=== PATIENT | female | born 1970 | race Caucasian/White ===

== ENCOUNTER 2018-10-11 09:35 | Inpatient (IN) ==
--- NOTE | 2018-10-11 09:33 | Anesthesia Evaluation PreOp ---
Date of Encounter: 10/11/18 Time of Encounter: 09:29 - Past History Planned Operation: Bronchoscopy, Left Thorocoscopy, Removal Of Mass Cardiac History: Denies any Significant Hx Pulmonary History: Other (Mediastinal Mass) [employer]ITY [employer]ER History: Other (Depression, RLS) Other Medical History: Thyroid (Hypo), Other (Fibromyalgia) Anesthesia History: No Prior Anesthetic Complications, Past Anesthesia (KAYY, Bladder sling) : No (KAYY) Alcohol Use: none Drug use: none Medications and Allergies Lidocaine Patch [Lidoderm 5% patch] 1 each TP DAILY #14 adh..patch 09/10/18 [Rx] Hydrocodone/Acetaminophen [Hydrocodone-Acetamin 7.5-300] 1 each PO Q6H PRN 09/18/18 [History] Levothyroxine Sodium [Synthroid] 200 mcg PO 09/18/18 [History] Ondansetron HCl [Zofran] 4 mg PO Q6H PRN #30 tab 09/18/18 [Rx] Allergy/AdvReac Type Severity Reaction Status Date / Time No Known Allergies Allergy Verified 09/18/18 13:42 - Meds/Allergy Pre-op Review Medications Reviewed: Yes Allergies Reviewed: Yes Beta Blockers on Current Med List: No Anesthesia Results - Labs Laboratory Tests 09/18/18 09/18/18 14:22 14:22 WBC 4.8 Hgb 11.0 L Hct 32.4 L Plt Count 246 Sodium 138 Potassium 4.0 Chloride 101 Carbon Dioxide 26 BUN 14 Creatinine 0.72 - Imaging EKG: report reviewed (SR) Anesthesia Exam O2 Sat Height 1.63 m Weight 99.79 kg O2 Sat by Pulse Oximetry 98 Vital Signs Temp Pulse Resp BP Pulse Ox 98.7 F 76 18 152/92 98 10/11/18 09:59 10/11/18 09:59 10/11/18 09:59 10/11/18 09:59 10/11/18 09:59 NPO (# of Hours): > 8 hrs Pain Scale: 0 Pain Scale Used: Numeric (1 - 10) - HEENT Pupil (Motor): Pupils equal, EOMI Mallampati: I Teeth: Normal Oral Opening: Greater than 3 - COMMUNITY CHEST OFFICER LOC: Oriented COMM[employer]ITY CHEST [employer]ER Motor: Normal RUE, Normal LUE, Normal RLE, Normal LLE, Normal Face [employer]ER Sensory: Normal: RUE, LUE, RLE, LLE, Face - Cardiac Rhythm: Regular Murmur: None JVD: No Carotid Bruit: No - Pulmonary Breath Sounds: bilateral Clear Respiratory Effort: Symmetrical Anesthesia Assess/Plan ASA Score: 3 Level of consciousness: Cooperative Anesthetic Plan: General Autologous Blood: Yes Monitoring Plan: Standard Monitors Recovery Plan: PACU
[2018-10-11] MEDS ORDERED: *HR* FentaNYL (PF) 100 MCG/2 ML VIAL ONE (09:45)
[2018-10-11] MEDS ORDERED: *HR* Midazolam HCl 2 MG/2 ML VIAL ONE (09:45)
[2018-10-11] MEDS ORDERED: *HR* Propofol 200 MG/20 ML VIAL IVP ONE (09:45)
[2018-10-11] MEDS ORDERED: *HR* Succinylcholine 200 MG/10 ML VIAL IVP ONE (09:48)
[2018-10-11] MEDS ORDERED: *HR* Rocuronium Bromide 50 MG/5 ML VIAL ONE ×2 (09:48→11:12)
[2018-10-11] MEDS ORDERED: Lidocaine -MPF 2% 2 ML VIAL ONE (09:48)
[2018-10-11] MEDS ORDERED: Acetaminophen IV 1,000 MG/100 ML INFUS..BTL IVPB ONE (10:01)
[2018-10-11] MEDS ORDERED: CeFAZolin Syr 2,000MG/20 ML 2,000 MG/20 ML SYRINGE IVPB ONE (10:01)
[2018-10-11] MEDS ORDERED: Gabapentin 300 MG CAPSULE PO ONE (10:02)
[2018-10-11] MEDS ORDERED: Ringers Solution, Lactated 1,000 ML IVC SCH (10:15)
--- NOTE | 2018-10-11 10:27 | History & Physical Report ---
Date of Encounter: 10/11/18 Time of Encounter: 10:26 24 Hour HP Update - Instructions Instructions: If the History and Physical is less than 30 days old and was completed prior to A.M. admission and or procedure and has NOT been updated on calendar day of procedure please complete this update prior to performing procedure. - Update Patient reports changes in Medical Condition: No Changes in examination, assessment, or condition: No Changes in Medication: No Preop tests/diagnostics Reviewed: Yes Pre-Op MRSA Screen: Negative Surgery Remains Indicated: Yes Consent for Planned Operative Procedure(s) Verified: Yes - Pre-Operative Checklist Preoperative Checklist Indicated: Yes Prophylactic Antibiotic Ordered: Yes Home Medications Include Beta Valorie: No Beta Valorie Taken Today (Day of Surgery): No Beta Valorie Taken Yesterday (Day Prior to Surgery): No Is VTE Prophylaxis Indicated?: Yes
[2018-10-11] MEDS ORDERED: KETAMINE HCL 50 MG/ML SYRINGE IV ONE (10:38)
[2018-10-11] MEDS ORDERED: Dexamethasone 4 MG/ML VIAL ONE (11:06)
[2018-10-11] MEDS ORDERED: Ondansetron 4 MG/2 ML VIAL ONE (11:06)
[2018-10-11] MEDS ORDERED: TALC (Sterile Pwd) 4 GM VIAL IR ONE ×2 (11:20)
[2018-10-11] MEDS ORDERED: *HR* PHENYLEPHRINE 1,000 MCG/10 ML SYRINGE IVP ONE (11:32)
[2018-10-11] MEDS ORDERED: Ketorolac 30 MG/ML VIAL ONE (11:38)
--- NOTE | 2018-10-11 12:04 | Operative Note ---
Date of procedure: 10/11/18 Pre-op diagnosis: mediastinal mass Post-op diagnosis: other (sarcoidosis) Procedure: dx bronchoscopy, left vats resection mediastinal mass Anesthesia: GETA Local Anesthetics: 0.5% Sensorcaine HCL SubQ (cc) Surgeon: Holland Fish Was there an nurses medical assistants phlebotomists present: No Estimated blood loss (cc): 1 Specimen: mediastinal mass Condition: stable Disposition: PACU Procedure in Detail: The patient was brought to the operating room and placed on the operating room table in the supine position. After undergoing general anesthesia with Cyn compressive devices on bilateral lower extremities and perioperative antibiotics on board bronchoscopy demonstrated normal Feick mucosa but edematous mucosa throughout the tracheobronchial tree. Patient was then placed on the operating room table in the right lateral decubitus position with care to pad all pressure points. She was prepped and draped in usual sterile fashion. 3 thoracoscopy ports were placed the mass seen on CT scan was identified and resected intraoperative frozen section demonstrating known necrotizing granulomas with antibiotics. Hemostasis was excellent intercostal nerve blocks performed 24 Manuelito drain placed in the chest through one of thoracoscopy ports and secured into place with Ethibond suture. Remaining incisions were closed with 0 Vicryl and 4-0 Monocryl subcuticular stitches with dressings consisting of Steri-Strips and sterile gauze. Patient was extubated and taken to the recovery room breathing spontaneously and hemodynamically stable.
[2018-10-11] MEDS ORDERED: Ketorolac 15 MG/ML VIAL IM SCH (12:50)
--- NOTE | 2018-10-11 12:52 | Anesthesia Evaluation Post Op ---
Date of Encounter: 10/11/18 Time of Encounter: 12:51 - Vital Signs Vital Signs: Last Vital Signs Temp 97.0 F L 10/11/18 12:20 Pulse 70 10/11/18 12:40 Resp 16 10/11/18 12:40 BP 106/65 10/11/18 12:40 Pulse Ox 96 10/11/18 12:40 - Lungs Lungs: Clear Ascult./Percussion - Airway Airway: Non-obstructed - Cardiovascular Regular Rate - Mental Status Mental Status: Alert & Oriented, Answers Appropriately - Pain Pain Scale: 2 - Nausea Vomiting Nausea Vomiting: Not Present - Hydration Hydration: NPO - Discharge PostOp Status: Transfer Patient to floor
[2018-10-11] MEDS: 0.9 % Sodium Chloride 1,000 ML IVC SCH (13:30)
[2018-10-11] MEDS: Gabapentin 300 MG CAPSULE PO SCH ×2 (15:05→21:08)
[2018-10-11] MEDS: *HR* HYDROcodone/Acet 5/325 mg TABLET PO PRN ×2 (15:05→21:08)
[2018-10-11] MEDS: Ipratropium/Albuterol Neb 3 ML IH SCH ×3 (15:20→19:59)
[2018-10-11] MEDS: Ketorolac 15 MG/ML VIAL IVP SCH ×2 (17:49→23:52)
[2018-10-12] MEDS: Ipratropium/Albuterol Neb 3 ML IH SCH ×4 (00:40→11:37)
[2018-10-12] MEDS: *HR* HYDROcodone/Acet 5/325 mg TABLET PO PRN ×2 (03:09→08:52)
[2018-10-12 05:10] LABS: Hematocrit 27.8 % (35.3-44.9); Hemoglobin 9.2 g/dL (11.5-15.4); Mean Corpuscular HGB Conc 33.1 g/dL (31.6-35.5); Mean Corpuscular Volume 93.6 fL (83.0-100.0); Mean Platelet Volume 9.2 fL (9.4-12.4); Platelet Count 188 K/mcL (140-400); Red Blood Count 2.97 M/mcL (3.82-4.97); Red Cell Distribution Width 17.6 % (11.5-14.5)
[2018-10-12] MEDS: Ketorolac 15 MG/ML VIAL IVP SCH ×2 (05:30→11:26)
[2018-10-12] MEDS: 0.9 % Sodium Chloride 1,000 ML IVC SCH (05:30)
[2018-10-12 05:33] LABS: BUN/Creatinine Ratio 16 (6-26); Blood Urea Nitrogen 10 mg/dL (6-20); Calcium 9.3 mg/dL (8.6-10.3); Carbon Dioxide 23 mEq/L (23-29); Chloride 107 mEq/L (98-107); Glucose 134 mg/dL (70-105); Osmolality,Calculated 291 (280-300); Potassium 3.5 mEq/L (3.5-5.1); Sodium 140 mEq/L (136-145); eGFR For Non-African Americans > 60 (> 60)
[2018-10-12 08:07] VITALS: BP 163/87
[2018-10-12] MEDS: Gabapentin 300 MG CAPSULE PO SCH (08:25)
--- NOTE | 2018-10-12 08:56 | Discharge Summary ---
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 discharge home. informed patient and family that they will follow up with me and dr. bryson in about 2 weeks. (2) Hypothyroid Priority: Secondary Status: Chronic Comments: continue home medications. Qualifiers: Hypothyroidism type: acquired Qualified Code(s): E03.9 - Hypothyroidism, unspecified - Hospital Course Hospital course: Ms. Santos is a 48 year old female - Time Spent with Patient Total time spent providing and/or coordinating discharge services: - Discharge Medications Prescriptions: No Action Levothyroxine Sodium [Synthroid] 200 mcg PO DAILY Home Medications: Levothyroxine Sodium [Synthroid] 200 mcg PO DAILY 09/18/18 [History] Allergies/Adverse Reactions: Allergy/AdvReac Type Severity Reaction Status Date / Time No Known Allergies Allergy Verified 09/18/18 13:42 Date of admission: 10/11/18 13:37 Primary care physician: Dodie Ortega Consults: none Procedure(s) Performed: bronchoscopy, left vats resection mediastinal mass Discharging clinician: Holland Fish Anticipated date of discharge: 10/12/18 Physical Examination Vital Signs, Last 4 Hours Temp Pulse Resp BP Pulse Ox 10/12/18 08:05 98.9 F 68 18 163/87 100 10/12/18 08:00 98.9 F 68 18 163/87 100 General: No Apparent Distress, Well developed, Well nourished HEENT: Atraumatic, Normocephaly, Trachea midline Cardiac: Reg Rate and Rhythm, Normal S1 and S2 Lungs: Normal Breath Sounds Neuro: Alert and responsive, No focal deficits noted, Cranial nerves intact Abdomen: Soft, Non-tender Skin: Other (dressings clean. no signs of infection ) - Patient Status Disposition: Home, Self-Care Condition: Good Functional capacity at discharge: independent ambulation Overall status at discharge: patient is progressing back to baseline - Discharge Instructions Follow Up With: Dodie Ortega MD [Primary Care Provider] - Holland Fish MD [Partnered Physician] - 11/05/18 1:20 pm - Diet and Activity Activity: increase activity as tolerated, resume usual activities as tolerated (no driving if taking norco ) Diet: advance to your usual diet
== END 2018-10-12 11:56 | disposition home or self-care (01) | DRG 165 ==
LOC: SAMDAY 09:35 → 2NNU 13:37
PROVIDERS: ADMIT Thoracic Surgery (Cardiothoracic Vascular Surgery); ATTEND Thoracic Surgery (Cardiothoracic Vascular Surgery)